=== PATIENT | female | born 1995 | race Caucasian/White ===

== ENCOUNTER 2018-05-17 06:32 | Emergency (ER) | payer MEDICAID ==
[~2018-05-17] VITALS: Ht 162.6 cm; Wt 95.3 kg
[2018-05-17 06:38] VITALS: BP_SYST 141
[2018-05-17 07:14] VITALS: BP_SYST 141
== END 2018-05-17 07:15 | disposition home or self-care (01) ==
LOC: SED 06:32
DX: J02.9 Acute pharyngitis, unspecified (principal); E66.9 Obesity, unspecified; Z68.36 Body mass index [BMI] 36.0-36.9, adult
CPT/HCPCS: 99283